=== PATIENT | female | born 2000 | race Two or more races ===

== ENCOUNTER 2023-09-28 17:55 | Emergency (ER) | payer MEDICAID ==
[~2023-09-28] VITALS: Ht 157.5 cm; Wt 65.8 kg
[2023-09-28] MEDS ORDERED: ACETAMINOPHEN ES 500 MG TABLET ONE (20:33)
[2023-09-28] MEDS: ACETAMINOPHEN ES 500 MG TABLET PO ONE (20:36)
[2023-09-28 20:37] VITALS: O2SAT 99
[2023-09-28] MEDS: ALBUTEROL FS 2.5 MG/3 ML VIAL.NEB NEB ONE (20:37)
[2023-09-28] MEDS: IPRATROPIUM NEB FS 0.5 MG/2.5 ML AMPUL.NEB NEB ONE (20:37)
[2023-09-28] MEDS ORDERED: ALBUTEROL FS 2.5 MG/3 ML VIAL.NEB ONE (20:39)
[2023-09-28] MEDS ORDERED: IPRATROPIUM NEB FS 0.5 MG/2.5 ML AMPUL.NEB ONE (20:39)
[2023-09-28 20:47] VITALS: O2SAT 99
[2023-09-28] MEDS ORDERED: ACET-2605 PO (20:50)
[2023-09-28] MEDS ORDERED: ALBU18HF2 INH (20:50)
[2023-09-28] MEDS ORDERED: GUAI-671 PO (20:50)
[2023-09-28] MEDS ORDERED: ALBU2.5V13 NEB (21:31)
[2023-09-28 23:10] VITALS: BP 116/59; TEMP 98.5; O2SAT 99
== END 2023-09-28 23:10 | disposition home or self-care (01) ==
LOC: ER 18:13
DX: J06.9 Acute upper respiratory infection, unspecified (principal); J45.909 Unspecified asthma, uncomplicated; Z90.89 Acquired absence of other organs; Z88.8 Allergy status to other drugs, medicaments and biological substances; Z20.822 Contact with and (suspected) exposure to COVID-19
CPT/HCPCS: 71045-TC; 86403-TC